=== PATIENT | female | born 1985 | race African-American/Black ===

== ENCOUNTER 2023-02-18 09:06 | Observation (INO) | payer OTHER, SELFPAY ==
[2023-02-18] VITALS (21 sets, daily range): BP systolic 144–166; BP diastolic 86–96; PULSE 56–84; RESP 16–18; TEMP 36.2–36.6; O2SAT 98–100; BMI 25.0
--- NOTE | ~2023-02-18 | XR_ITS ---
EXAMINATION: XR abdomen obstructive series DATE: 02/18/2023 21:59 INDICATION: Abdominal pain TECHNIQUE: Upright and supine views of the abdomen were obtained. COMPARISON: None. FINDINGS: The bowel gas pattern is nonspecific. No dilated loops of bowel are evident. There is no fr ee intraperitoneal gas. There are phleboliths of the left pelvis. The visualized lungs are clear. IMPRESSION: 1. Nonobstructive bowel gas pattern. Reviewed, dictated and finalized at location A.
--- NOTE | 2023-02-18 09:16 | PC.NURSE ---
EDP at bedside to assess pt.
[2023-02-18] MEDS: LACTATED RINGERS 1,000 ML 999 ML IV CONT ×2 (09:38→11:17)
[2023-02-18] MEDS: FAMOTIDINE 20 MG/2 ML VIAL IV PUSH ×2 (09:38→21:54)
[2023-02-18] MEDS: diphenhydrAMINE HCl INJ 50 MG/ML VIAL 25 MG IV PUSH (09:38)
[2023-02-18] MEDS: METOCLOPRAMIDE HCL INJ 10 MG/2 ML VIAL IV PUSH (09:39)
--- NOTE | 2023-02-18 09:54 | ED.NAVMDI ---
HPI - Nausea/Vomiting/Diarrhea General Chief complaint: Nausea/Vomiting/Diarrhea <DAVID Ortiz Last Filed: 02/18/23 15:18> Stated complaint: n/v <Eileen Key PA-C - Last Filed: 02/18/23 15:18> Time Seen by Provider: 02/18/23 09:13 <DAVID Ortiz Last Filed: 02/18/23 15:18> History of Present Illness HPI Narrative: 37-year-old female here for evaluation of nausea vomiting and diarrhea over the past 3 days. Patient states that she has been unable to tolerate any p.o. and has been vomiting yellow emesis after every trial. She reports that diffuse abdominal cramping but no significant pain. She was having some bilateral low back pain yesterday which has since resolved. No fevers, chills, chance of , bloody diarrhea, new or suspicious foods or sick contacts. She was seen at [place] emergency department yesterday, had a CT scan of her abdomen and pelvis that was reassuring and she was sent home after fluids. States that she did feel better initially but the vomiting returned about 12 hours ago. <DAVID Ortiz Last Filed: 02/18/23 15:18> Related Data Home medications: Home Medications Medication Instructions Recorded Confirmed buprenorphine 8 mg-naloxone 2 mg 1 tablet sublingual DAILY 02/18/23 02/18/23 sublingual tablet <DAVID Ortiz Last Filed: 02/18/23 15:18> Allergies/Adverse reactions: Allergies Allergy/AdvReac Type Severity Reaction Status Date / Time No Known Allergies Allergy Verified 02/18/23 09:12 <DAVID Ortiz Last Filed: 02/18/23 15:18> Review of Systems Review of Systems: Gen.: Denies fevers or chills Eyes: Denies eye pain or visual change ENT: Denies congestion Respiratory: Denies shortness of breath or cough CV: Denies chest pain or palpitations GI: Reports nausea, vomiting and diarrhea denies burning, urgency, frequency or hematuria Musculoskeletal: Denies back pain or muscle pain Neuro: Denies numbness, tingling, weakness or focal weakness Skin: Denies rash Except as documented, all other systems reviewed and negative <Eileen Key PA-C - Last Filed: 02/18/23 15:18> [facility] Past Medical History Medical History: Medical History (Updated 02/19/23 @ 09:24 by Eusebio Patterson MD) Diarrhea Hypokalemia Narcotic abuse Nausea & vomiting <Eileen Key PA-C - Last Filed: 02/18/23 15:18> Surgical History Surgical History: Surgical History (Updated 02/18/23 @ 21:29 by Nasra Mclean NP) H/O section <DAVID Ortiz Last Filed: 02/18/23 15:18> Family History Family History: Family History (Updated 02/18/23 @ 21:29 by Nasra Mclean NP) Father Hypertension Mother Hypertension Diabetes mellitus <Eileen Key PA-C - Last Filed: 02/18/23 15:18> Social History Social History: Social History (Updated 02/18/23 @ 21:30 by Nasra Mclean NP) Social History: The patient stated that she used to smoke cigarettes and she now vapes. 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 She denies any alcohol marijuana or illicit drugs. She has a past history of drug abuse and had been on Suboxone and stop taking it 3 weeks ago. Code status full code Smoking packs per day: 9 Smoking cigarettes per day: 180.0 Years smoked: 15 Smoking pack-years: 135.00 Smoking status: Former smoker Tobacco type: cigarettes Smoking end date: 02/04/23 Alcohol intake: never Lack of Transportation: YES Lack of Food: Never True Current Housing: I Have Housing Concerned About Future Housing: YES Difficulty Paying Gas/Electric Bills: YES Difficulty Paying for Meds: YES Currently Unemployed: YES Education: High School Diploma/GED Difficulty w/ Childcare or Family Care: No Spiritual care concerns: No <DAVID Ortiz Last Filed: 02/18/23 15:
[2023-02-18 10:33] LABS: Influenza A QL RT-PCR Negative (Negative); Influenza B QL RT-PCR Negative (Negative); SARS-CoV-2 RNA PCR Negative
[2023-02-18 10:37] LABS: Appearance Urine Cloudy (Clear); Bacteria Urine 1+ /hpf; Bilirubin Urine Negative (Negative); Blood Urine Negative (Negative); Color Urine Yellow (Yellow); Glucose Urine UA Negative (Negative); Ketones Urine Trace mg/dL (Negative); Leukocyte Esterase Ur Negative LEU/UL (Negative); Nitrate Urine Negative (Negative); Non Pathogenic Casts 0-2; Protein Urine 1+ mg/dL (Negative); RBC Urine 0-2 /hpf (0-2); Specific Grav Ur 1.015 (1.001-1.035); Squamous Epithelial Cell Urine Moderate /hpf (Few); Urobilinogen Urine 0.2 mg/dL (<2.0); WBC Urine 0-5 /hpf
[2023-02-18 10:44] LABS: Alanine Aminotransferase 21 U/L (6-35); Albumin Level 4.6 g/dL (3.5-5.1); Alkaline Phosphatase 69 U/L (38-126); Anion Gap 11 mmol/L (8-16); Aspartate Amino Transferase 29 U/L (14-36); Blood Urea Nitrogen 16 mg/dL (7-17); Calcium 9.4 mg/dL (8.4-10.2); Carbon Dioxide 22 mmol/L (22-30); Chloride 110 mmol/L (98-107); Estimated CRCL calculation 59 ml/min; Estimated Glomerular Filt Rate > 60; Glucose 107 mg/dL (65-110); Lipase 99 U/L (23-300); Potassium 3.4 mmol/L (3.4-5.0); Sodium 143 mmol/L (137-145)
[2023-02-18 10:51] LABS: Add Urine Microscopic? YES
[2023-02-18 10:54] LABS: Basophils Percent Auto 0.4 % (0.2-1.2); Eosinophils Percent Auto 0.1 % (0-4.4); Hematocrit 37.3 % (37.0-47.0); Hemoglobin 12.2 g/dL (12.0-15.0); Immature Granulocyte Absolute 0.05 K/mm3 (0.00-0.031); Immature Granulocyte Percent A 0.5 % (0-0.5); Lymphocytes Absolute Auto 1.14 K/mm3 (0.9-3.2); Lymphocytes Percent Auto 11.6 % (18.3-44.2); Mean Corpuscular HGB Conc 32.7 g/dl (32-36); Mean Corpuscular Hemoglobin 29.8 pg (26-34); Mean Platelet Volume 8.8 fl (7.4-10.4); Monocytes Absolute Auto 0.3 K/mm3 (0.1-0.6); Monocytes Percent Auto 2.8 % (2.6-8.5); Neutrophils Absolute Auto 8.3 K/mm3 (1.3-6.7); Neutrophils Percent Auto 84.6 % (45.5-73.1); Platelet Count Result 316 k/mm3 (150-375); Red Cell Distribution Width 13.4 % (11.5-14.5); White Blood Count 9.8 K/mm3 (4.5-10.0)
[2023-02-18] MEDS: ONDANSETRON INJ 4 MG/2 ML VIAL IV PUSH ×3 (11:17→22:20)
[2023-02-18 11:46] LABS: Bilirubin,Total 0.6 mg/dL (0.2-1.3)
[2023-02-18] MEDS: SCOPOLAMINE 1.5 MG PATCH TRANSDERM (13:37)
--- NOTE | 2023-02-18 13:56 | PC.NURSE ---
PO challenge not attempted as patient actively vomiting. EDP made aware.
[2023-02-18 14:20] LABS: Amphetamine Screen Urine Negative (Negative); Barbiturate Screen Urine Negative (Negative); Benzodiazepines Screen Urine Negative (Negative); Cannabinoid Screen Urine Negative (Negative); Cocaine Screen Urine Negative (Negative); Methadone Screen Urine Negative (Negative); Opiate Screen Urine Negative (Negative); Phencyclidine Screen Urine Negative (Negative)
--- NOTE | 2023-02-18 16:28 | PC.NURSE ---
2402 [facility] Admission Note: The patient,Isreal Ramirez,37 y/o, was given written information regarding hospital policies, unit procedures and contact persons. Patient recieved alert and oriented, on room air. Patient admission done.
[2023-02-18] MEDS: LACTATED RINGERS 1,000 ML 150 ML IV CONT (16:51)
--- NOTE | 2023-02-18 18:12 | PM.IMHP ---
H&P: HPI History of Present Illness Date/Time: 02/18/23 18:12 Chief Complaint: Nausea vomiting diarrhea Narrative: This is a 37-year-old female patient. The patient has been having nausea vomiting diarrhea for the past 3 days. The patient had been taking Suboxone in 3 weeks. The patient stated this does not feel like withdrawal symptoms. Patient was given IV fluids, Benadryl, Pepcid, scopolamine, and Zofran. The patient has not been able to tolerate any oral intake. The patient has been vomiting yellow emesis after p.o. trial. She has been complaining of bilateral lower pain since yesterday. No fever chills. The patient stated that she had a CT of the abdomen pelvis yesterday at [facility]. She was told that the CT scan was normal. The patient continue to vomit and then came here to [facility]. No repeat CT was performed I am asking for copies the CT scan from [facility]. The patient stil is her [id number] child and does not want any narcotics. The patient is being admitted to observation status on the date of service of 02/18/2023. Review of Systems Review of Systems: All systems reviewed & are unremarkable except as noted in HPI and below Constitutional: Constitutional: Reports as per HPI and Reports no additional constitutional complaints Eyes: Eyes: Reports as per HPI and Reports no additional eye complaints ENT: Reports system reviewed and no additional complaints, except as documented and Reports Normal hearing present Cardiovascular: Cardiovascular: Reports no additional cardiovascular complaints Respiratory: Respiratory: Reports no additional respiratory complaints and Reports no additional respiratory complaints Gastrointestinal: Gastrointestinal: Reports as per HPI and Reports no additional gastrointestinal complaints Musculoskeletal: Musculoskeletal: Reports no additional musculoskeletal complaints Integumentary/Breasts: Skin/Breast: Reports system reviewed and no additional complaints, except as docu and Reports as per HPI Neurologic: Reports system reviewed and no additional complaints, except as documented, Reports as per HPI and Reports Normal hearing present Psychiatric: Psychiatric: Reports no additional psychiatric complaints and Reports as per HPI Endocrine: Endocrine: Reports no additional endocrine complaints Hematologic/Lymphatic: Hematologic/Lymphatic: Reports no additional hematologic/lymphatic complaints Allergic/Immunologic: Allergic/Immunologic: Reports no additional allergic/immunologic complaints [facility] Past Medical History Medical History (Updated 02/18/23 @ 21:29 by Nasra Mclean NP) Narcotic abuse Surgical History Surgical History (Updated 02/18/23 @ 21:29 by Nasra Mclean NP) H/O section Family History Family History (Updated 02/18/23 @ 21:29 by Nasra Mclean NP) Father Hypertension Mother Hypertension Diabetes mellitus Social History Social History (Updated 02/18/23 @ 21:30 by Nasra Mclean NP) Social History: The patient stated that she used to smoke cigarettes and she now vapes. 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 She denies any alcohol marijuana or illicit drugs. She has a past history of drug abuse and had been on Suboxone and stop taking it 3 weeks ago. Code status full code Smoking packs per day: 9 Smoking cigarettes per day: 180.0 Years smoked: 15 Smoking pack-years: 135.00 Smoking status: Former smoker Tobacco type: cigarettes Smoking end date: 02/04/23 Alcohol intake: never Lack of Transportation: YES Lack of Food: Never True Current Housing: I Have Housing Concerned About Future Housing: YES Difficulty Paying Gas/Electric Bills: YES Difficulty Paying for Meds: YES Currently Unemployed: YES Education: High School Diploma/GED Difficulty w/ Childcare or Family Care: No Spiritual care concerns: No Meds Home Medications and Allergies Ho
[2023-02-18] MEDS: PROMETHAZINE HCL 25 MG/ML AMPUL 12.5 MG IV PUSH (20:23)
[2023-02-18] MEDS: LACTATED RINGERS 1,000 ML 100 ML IV CONT (20:23)
[2023-02-19] MEDS: ONDANSETRON INJ 4 MG/2 ML VIAL IV PUSH ×3 (05:00→20:26)
[2023-02-19] MEDS: diphenhydrAMINE HCl INJ 50 MG/ML VIAL 25 MG IV PUSH ×2 (05:02→20:25)
[2023-02-19 06:00] VITALS: BP 141/81; PULSE 55; RESP 16; TEMP 37; O2SAT 100
[2023-02-19 06:34] LABS: Basophils Percent Auto 0.2 % (0.2-1.2); Hematocrit 36.2 % (37.0-47.0); Immature Granulocyte Absolute 0.08 K/mm3 (0.00-0.031); Immature Granulocyte Percent A 0.7 % (0-0.5); Lymphocytes Absolute Auto 1.75 K/mm3 (0.9-3.2); Lymphocytes Percent Auto 14.8 % (18.3-44.2); Mean Corpuscular HGB Conc 33.1 g/dl (32-36); Mean Corpuscular Hemoglobin 29.9 pg (26-34); Mean Platelet Volume 8.7 fl (7.4-10.4); Monocytes Absolute Auto 0.8 K/mm3 (0.1-0.6); Monocytes Percent Auto 6.3 % (2.6-8.5); Neutrophils Absolute Auto 9.2 K/mm3 (1.3-6.7); Platelet Count Result 281 k/mm3 (150-375); Red Blood Count 4.02 M/mm3 (4.2-5.4); Red Cell Distribution Width 13.2 % (11.5-14.5); White Blood Count 11.8 K/mm3 (4.5-10.0)
[2023-02-19 06:48] LABS: Lactic Acid Reflex 1.1 mmol/L (0.7-2.0)
[2023-02-19 07:16] LABS: Alanine Aminotransferase 19 U/L (6-35); Albumin Level 4.1 g/dL (3.5-5.1); Alkaline Phosphatase 61 U/L (38-126); Anion Gap 9 mmol/L (8-16); Aspartate Amino Transferase 22 U/L (14-36); Bilirubin,Total 0.6 mg/dL (0.2-1.3); Blood Urea Nitrogen 17 mg/dL (7-17); Calcium 8.8 mg/dL (8.4-10.2); Carbon Dioxide 23 mmol/L (22-30); Chloride 108 mmol/L (98-107); Estimated CRCL calculation 66 ml/min; Estimated Glomerular Filt Rate > 60; Glucose 93 mg/dL (65-110); Lipase 120 U/L (23-300); Magnesium 1.7 mg/dL (1.6-2.3); Potassium 3.3 mmol/L (3.4-5.0); Sodium 140 mmol/L (137-145)
[2023-02-19] MEDS: FAMOTIDINE 20 MG/2 ML VIAL IV PUSH ×2 (07:49→20:21)
[2023-02-19] MEDS: LACTATED RINGERS 1,000 ML 100 ML IV CONT ×2 (07:55→20:20)
[2023-02-19] MEDS: PROMETHAZINE HCL 25 MG/ML AMPUL 12.5 MG IV PUSH (07:56)
--- NOTE | 2023-02-19 09:20 | WPDGICN ---
Assessment and Plan Assessment and plan (1) Nausea & vomiting: Code(s): R11.2 - Nausea with vomiting, unspecified Status: Acute Assessment and Plan: better with antiemetics continue with medical treatment liquid diet for now and advance as tolerated ? gastroenteritis as she also had diarrhea but better (2) Diarrhea: Code(s): R19.7 - Diarrhea, unspecified Status: Acute Assessment and Plan: monitor (3) Narcotic abuse: Code(s): F11.10 - Opioid abuse, uncomplicated Status: Acute Assessment and Plan: not longer using suboxone ? withdrawal (4) Hypokalemia: Code(s): E87.6 - Hypokalemia Status: Acute Assessment and Plan: repleting GI Consult Note Consult date/time: 02/19/23 09:20 Reason for consult: n/v, diarrhea HPI: Isreal Ramirez is a 37 year old female admitted after 3 days of new onset of nausea, vomiting and diarrhea. She used to be on Suboxone but discontinue 3 weeks, she is also her baby that is 15 months old.? She went to another ER, CT scan was unremarkable but came here because persistent of symptoms, treated with IV fluids, Benadryl, Pepcid, scopolamine, and Zofran.?Still not tolerating diet and finally admitted for further treatment. Normal renal function, mild hypokalemia. KUB no major findings, never had egd. Denies alcohol or marijuana use, no sick contacts. She is better with antiemetics. Review of Systems Review of Systems: Gen.: Denies fevers or chills Eyes: Denies eye pain or visual change ENT: Denies congestion Respiratory: Denies shortness of breath or cough CV: Denies chest pain or palpitations GI: Reports nausea, vomiting and diarrhea denies burning, urgency, frequency or hematuria Musculoskeletal: Denies back pain or muscle pain Neuro: Denies numbness, tingling, weakness or focal weakness Skin: Denies rash Except as documented, all other systems reviewed and negative [facility] Past Medical History Medical History (Updated 02/19/23 @ 09:24 by Eusebio Patterson MD) Diarrhea Hypokalemia Narcotic abuse Nausea & vomiting Surgical History Surgical History (Updated 02/18/23 @ 21:29 by Nasra Mclean NP) H/O section Family History Family History (Updated 02/18/23 @ 21:29 by Nasra Mclean NP) Father Hypertension Mother Hypertension Diabetes mellitus Social History Social History (Updated 02/18/23 @ 21:30 by Nasra Mclean NP) Social History: The patient stated that she used to smoke cigarettes and she now vapes. 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 She denies any alcohol marijuana or illicit drugs. She has a past history of drug abuse and had been on Suboxone and stop taking it 3 weeks ago. Code status full code Smoking packs per day: 9 Smoking cigarettes per day: 180.0 Years smoked: 15 Smoking pack-years: 135.00 Smoking status: Former smoker Tobacco type: cigarettes Smoking end date: 02/04/23 Alcohol intake: never Lack of Transportation: YES Lack of Food: Never True Current Housing: I Have Housing Concerned About Future Housing: YES Difficulty Paying Gas/Electric Bills: YES Difficulty Paying for Meds: YES Currently Unemployed: YES Education: High School Diploma/GED Difficulty w/ Childcare or Family Care: No Spiritual care concerns: No Meds Home Medications and Allergies Home Medications Medication Instructions Recorded Confirmed Type buprenorphine 8 mg-naloxone 2 mg 1 tablet sublingual DAILY 02/18/23 02/18/23 History sublingual tablet Allergies Allergy/AdvReac Type Severity Reaction Status Date / Time No Known Allergies Allergy Verified 02/18/23 09:12 Vital Signs Vital Signs - 24 hr 02/18/23 09:47 02/18/23 10:01 02/18/23 10:24 Temperature Pulse Rate Respiratory Rate Blood Pressure 166/96 H Pulse Oximetry 100 100 Oxygen Delivery 02/18/23 10:32 02/18/23
--- NOTE | 2023-02-19 10:01 | PM.IMPN ---
Progress Note: A&P Assessment and Plan (1) Intractable nausea and vomiting: Code(s): R11.2 - Nausea with vomiting, unspecified Status: Acute Assessment and Plan: Tylenol and Toradol for pain control, avoid narcotics, recently discontinued Suboxone Appreciate GI consultation, continue Pepcid and antiemetics Clear liquid diet, advance as tolerated, continue IV fluids for now (2) Narcotic abuse: Code(s): F11.10 - Opioid abuse, uncomplicated Status: Acute Assessment and Plan: The patient stated that she stopped Suboxone 3 weeks ago. Plan DVT prophylaxis with SCDs GI prophylaxis with Pepcid Code status full code Subjective Date/time seen: 02/19/23 10:01 Interval history: 37-year-old female with history of nausea vomiting and diarrhea here with suspected gastroenteritis. No overnight events noted. No chest pain or shortness of breath. Still with nausea, some abdominal pain. No diarrhea anymore. No dysuria. No fevers or chills. Review of Systems Review of Systems: 12 point review of systems was assessed and was negative except as noted in the HPI Exam Narrative: General: No acute distress, alert and oriented per baseline HEENT: Atraumatic, normocephalic, mucous membranes moist CV: Regular rate and rhythm, S1, S2 Lungs: Clear to auscultation bilaterally, no rales or crackles noted, no wheezes, good air entry Abdomen: Soft, nontender, nondistended Extremities: Normal to inspection Skin: No rashes noted, no lesions or wounds seen Psych: Euthymic, normal affect Objective Data Vital Signs Vital Signs: Vital Signs - 24 hr 02/18/23 10:24 02/18/23 10:32 02/18/23 10:47 Temperature Pulse Rate Respiratory Rate Blood Pressure Pulse Oximetry 100 100 100 Oxygen Delivery 02/18/23 11:00 02/18/23 11:15 02/18/23 11:49 Temperature Pulse Rate Respiratory Rate Blood Pressure Pulse Oximetry 100 100 100 Oxygen Delivery 02/18/23 12:00 02/18/23 12:01 02/18/23 12:15 Temperature Pulse Rate Respiratory Rate Blood Pressure 144/92 H 161/90 H Pulse Oximetry 100 100 100 Oxygen Delivery 02/18/23 12:16 02/18/23 12:30 02/18/23 12:31 Temperature Pulse Rate Respiratory Rate Blood Pressure 166/86 H Pulse Oximetry 100 100 100 Oxygen Delivery 02/18/23 12:32 02/18/23 15:21 02/18/23 15:22 Temperature Pulse Rate 56 L Respiratory Rate 16 Blood Pressure 151/86 H Pulse Oximetry 100 100 100 Oxygen Delivery 02/18/23 17:29 02/18/23 21:49 02/19/23 06:00 Temperature 97.1 F L 98.6 F Pulse Rate 58 L 55 L Respiratory Rate 18 16 Blood Pressure 166/91 H 141/81 H Pulse Oximetry 100 100 Oxygen Delivery Room Air 02/19/23 08:00 Temperature Pulse Rate Respiratory Rate Blood Pressure Pulse Oximetry Oxygen Delivery Room Air Intake/Output Intake/Output: Intake & Output 02/16/23 02/17/23 02/18/23 02/19/23 23:59 23:59 23:59 23:59 Intake Total 2100 1000 Output Total 200 400 Balance 1900 600 Meds/Results Medications: Active Medications Generic Name Dose Route Start Last Admin Trade Name Freq PRN Reason Stop Dose Admin Dicyclomine HCl 20 mg 02/18/23 14:57 Dicyclomine Hcl Inj 20 Mg/2 Ml Vial IM Q6H PRN Abdominal Cramping Diphenhydramine HCl 25 mg 02/18/23 17:46 02/19/23 05:02 Diphenhydramine Hcl Inj 50 Mg/Ml Vial IV PUSH 25 mg Q4H PRN Administration Itching Famotidine 20 mg 02/18/23 21:00 02/19/23 07:49 Famotidine 20 Mg/2 Ml Vial IV PUSH 20 mg Q12HR KELVIN Administration Lactated Ringer's 1,000 mls @ 100 mls/hr 02/18/23 18:15 02/19/23 07:55 Lr - Lactated Ringers Iv IV CONT 100 mls/hr .Q10H KELVIN Administration Acetaminophen 1,000 mg in 100 mls @ 400 mls/hr 02/18/23 21:33 02/18/23 22:17 Ofirmev 1,000 Mg Ivpb IVPB 02/19/23 21:32 Infused Q6H PRN Infusion Pain Rated 4-6 Ondansetron HCl
[2023-02-19 13:51] VITALS: BP 154/87; PULSE 53; RESP 16; TEMP 36.6; O2SAT 100
[2023-02-19] MEDS: KETOROLAC 15 MG/ML VIAL (*BKC) IV PUSH (17:41)
[2023-02-19 21:26] VITALS: BP 172/95; PULSE 99; RESP 14; TEMP 36.3; O2SAT 100
[2023-02-19 22:27] LABS: Total Triiodothyronine (T3) 0.63 NG/ML (0.97-1.69)
[2023-02-20] MEDS: diphenhydrAMINE HCl INJ 50 MG/ML VIAL 25 MG IV PUSH (00:48)
[2023-02-20] MEDS: ONDANSETRON INJ 4 MG/2 ML VIAL IV PUSH ×3 (03:22→18:24)
[2023-02-20] MEDS: ACETAMINOPHEN 325 MG TABLET 650 MG PO ×3 (03:25→13:50)
[2023-02-20 05:59] VITALS: BP 159/98; PULSE 60; RESP 16; TEMP 36.4; O2SAT 100
[2023-02-20 06:28] LABS: Basophils Percent Auto 0.3 % (0.2-1.2); Hematocrit 34.4 % (37.0-47.0); Hemoglobin 11.7 g/dL (12.0-15.0); Immature Granulocyte Absolute 0.13 K/mm3 (0.00-0.031); Lymphocytes Absolute Auto 2.24 K/mm3 (0.9-3.2); Lymphocytes Percent Auto 17.4 % (18.3-44.2); Mean Corpuscular Hemoglobin 29.5 pg (26-34); Mean Corpuscular Volume 86.6 fl (80-100); Mean Platelet Volume 8.6 fl (7.4-10.4); Monocytes Absolute Auto 0.9 K/mm3 (0.1-0.6); Monocytes Percent Auto 6.6 % (2.6-8.5); Neutrophils Absolute Auto 9.7 K/mm3 (1.3-6.7); Neutrophils Percent Auto 74.7 % (45.5-73.1); Platelet Count Result 268 k/mm3 (150-375); Red Blood Count 3.97 M/mm3 (4.2-5.4); Red Cell Distribution Width 12.7 % (11.5-14.5); White Blood Count 12.9 K/mm3 (4.5-10.0)
[2023-02-20 06:37] LABS: Alanine Aminotransferase 20 U/L (6-35); Albumin Level 3.7 g/dL (3.5-5.1); Alkaline Phosphatase 56 U/L (38-126); Anion Gap 3 mmol/L (8-16); Aspartate Amino Transferase 24 U/L (14-36); Bilirubin,Total 0.7 mg/dL (0.2-1.3); Blood Urea Nitrogen 20 mg/dL (7-17); Calcium 8.3 mg/dL (8.4-10.2); Carbon Dioxide 28 mmol/L (22-30); Chloride 106 mmol/L (98-107); Estimated CRCL calculation 66 ml/min; Estimated Glomerular Filt Rate > 60; Glucose 100 mg/dL (65-110); Potassium 3.3 mmol/L (3.4-5.0); Sodium 137 mmol/L (137-145)
[2023-02-20] MEDS: LACTATED RINGERS 1,000 ML 100 ML IV CONT ×2 (07:26→14:03)
[2023-02-20] MEDS: FAMOTIDINE 20 MG/2 ML VIAL IV PUSH ×2 (07:29→20:38)
[2023-02-20 10:20] LABS: IFOB Positive Control Positive; Immunochemical Fecal Occult Bl Negative (N)
[2023-02-20 12:09] LABS: Toxigenic C. Diff POSITIVE (NEGATIVE)
[2023-02-20] MEDS: PROMETHAZINE HCL 25 MG/ML AMPUL 12.5 MG IV PUSH ×2 (13:49→20:38)
--- NOTE | 2023-02-20 13:52 | WPDGIPROGNO ---
Progress Note: A&P Assessment and Plan (1) C. difficile colitis: Code(s): A04.72 - Enterocolitis due to Clostridium difficile, not specified as recurrent Status: Acute Assessment and Plan: this can explain presentation started on oral vancomycin she does not have much appetite and still on liquid diet, feeling better since admission (2) Nausea & vomiting: Code(s): R11.2 - Nausea with vomiting, unspecified Status: Acute Assessment and Plan: no more vomiting still some nausea she prefers to stay on liquid diet today (3) Diarrhea: Code(s): R19.7 - Diarrhea, unspecified Status: Acute (4) Abdominal pain: Code(s): R10.9 - Unspecified abdominal pain Status: Acute Subjective Date/time seen: 02/20/23 13:52 Interval history: nausea better but still poor appetite, also diarrhea- just found to have C diff (denies exposure to abx or previous infection) Review of Systems Review of Systems: All systems reviewed & are unremarkable except as noted in HPI and below Exam Const: General: comfortable and no acute distress Other: feels cold HENMT: Face/Nose/Sinus: Normal nares present Eyes: General: appearance normal, both eyes and all related structures Neck: Neck: no JVD Resp: Auscultation: clear to auscultation bilaterally Cardio: Rate: regular rate Rhythm: regular rhythm GI: Inspection: non-distended GI Palp: Yes Soft to palpation, Yes Tenderness to palpation present (GI) (mild ttp, no rebound) and No Guarding due to palpation present (GI) Auscultation: normal bowel sounds Skin: General skin exam: normal color Neuro: Speech: normal speech Motor exam (neuro): 5/5 motor strength present throughout Extrem: General: normal to inspection Psych: Mental Status: mental status grossly normal Objective Data Vital Signs Vital Signs: Vital Signs - 24 hr 02/19/23 21:26 02/20/23 05:59 02/20/23 08:00 Temperature 97.4 F L 97.6 F Pulse Rate 99 60 Respiratory Rate 14 16 Blood Pressure 172/95 H 159/98 H Pulse Oximetry 100 100 Oxygen Delivery Room Air Intake/Output Intake/Output: Intake & Output 02/17/23 02/18/23 02/19/23 02/20/23 23:59 23:59 23:59 23:59 Intake Total 2100 2300 1440 Output Total 200 800 850 Balance 1900 1500 590 Meds/Results Medications: Active Medications Generic Name Dose Route Start Last Admin Trade Name Bhaveshq PRN Reason Stop Dose Admin Acetaminophen 650 mg 02/19/23 21:30 02/20/23 07:33 Acetaminophen 325 Mg Tablet PO 650 mg Q4H PRN Administration Mild Pain (1-3) or Fever Dicyclomine HCl 20 mg 02/18/23 14:57 Dicyclomine Hcl Inj 20 Mg/2 Ml Vial IM Q6H PRN Abdominal Cramping Diphenhydramine HCl 25 mg 02/18/23 17:46 02/20/23 00:48 Diphenhydramine Hcl Inj 50 Mg/Ml Vial IV PUSH 25 mg Q4H PRN Administration Itching Famotidine 20 mg 02/18/23 21:00 02/20/23 07:29 Famotidine 20 Mg/2 Ml Vial IV PUSH 20 mg Q12HR KELVIN Administration Lactated Ringer's 1,000 mls @ 100 mls/hr 02/18/23 18:15 02/20/23 07:26 Lr - Lactated Ringers Iv IV CONT 100 mls/hr .Q10H KELVIN Administration Ketorolac Tromethamine 15 mg 02/19/23 17:27 02/19/23 17:41 Ketorolac 15 Mg/Ml Vial (*Bkc) IV PUSH 15 mg Q6H PRN Administration Pain Rated 7-10 Ondansetron HCl 4 mg 02/18/23 14:57 02/20/23 07:26 Ondansetron Inj 4 Mg/2 Ml Vial IV PUSH 4 mg Q4H PRN Administration Nausea Promethazine HCl 12.5 mg 02/18/23 14:57 02/19/23 07:56 Promethazine Hcl 25 Mg/Ml Ampul IV PUSH 12.5 mg Q6H PRN Administration Nausea Vancomycin HCl 125 mg 02/20/23 18:00 Vancomycin Oral 125 Mg/2.5 Ml Syrup PO Q6HR [facility] Radiology Results: ITS Impressions Abdomen X-Ray 02/19/23 08:17 IMPRESSION: 1. Nonobstructive bowel gas pattern. Labs Labs: Laboratory Results - last 24 hr 02/19/23 02/20/23 02/20/23 05:54 06:06 06:06 WBC 12.
[2023-02-20] MEDS: KETOROLAC 15 MG/ML VIAL (*BKC) IV PUSH (13:59)
[2023-02-20 14:00] VITALS: BP 184/98; PULSE 56; RESP 16; TEMP 36; O2SAT 100
--- NOTE | 2023-02-20 14:03 | PM.IMPN ---
Progress Note: A&P Assessment and Plan (1) Intractable nausea and vomiting: Code(s): R11.2 - Nausea with vomiting, unspecified Status: Acute Assessment and Plan: Tylenol and Toradol for pain control, avoid narcotics, recently discontinued Suboxone Appreciate GI consultation, continue Pepcid and antiemetics clear liquid diet and advance as tolerated stop fluids (2) Narcotic abuse: Code(s): F11.10 - Opioid abuse, uncomplicated Status: Acute Assessment and Plan: The patient stated that she stopped Suboxone 3 weeks ago. Subjective Date/time seen: 02/20/23 14:04 Interval history: 37-year-old female with history of nausea vomiting and diarrhea here with suspected gastroenteritis. History of narcotic abuse has been off narcotics and on suboxone. Pt just found to have cdiff colitis Pt having alot of nausea and diarrhea today Blood pressures are high stop fluids just continue diet Review of Systems Review of Systems: Nausea and diarrhea Exam Narrative: General: No acute distress, alert and oriented per baseline HEENT: Atraumatic, normocephalic, mucous membranes moist CV: Regular rate and rhythm, S1, S2 Lungs: Clear to auscultation bilaterally, no rales or crackles noted, no wheezes, good air entry Abdomen: Soft, nontender, nondistended Extremities: Normal to inspection Skin: No rashes noted, no lesions or wounds seen Objective Data Vital Signs Vital Signs: Vital Signs - 24 hr 02/19/23 21:26 02/20/23 05:59 02/20/23 08:00 Temperature 36.3 C L 36.4 C Pulse Rate 99 60 Respiratory Rate 14 16 Blood Pressure 172/95 H 159/98 H Pulse Oximetry 100 100 Oxygen Delivery Room Air Intake/Output Intake/Output: Intake & Output 02/17/23 02/18/23 02/19/23 02/20/23 23:59 23:59 23:59 23:59 Intake Total 2100 2300 1440 Output Total 200 800 850 Balance 1900 1500 590 Meds/Results Medications: Active Medications Generic Name Dose Route Start Last Admin Trade Name Freq PRN Reason Stop Dose Admin Acetaminophen 650 mg 02/19/23 21:30 02/20/23 13:50 Acetaminophen 325 Mg Tablet PO 650 mg Q4H PRN Administration Mild Pain (1-3) or Fever Dicyclomine HCl 20 mg 02/18/23 14:57 Dicyclomine Hcl Inj 20 Mg/2 Ml Vial IM Q6H PRN Abdominal Cramping Diphenhydramine HCl 25 mg 02/18/23 17:46 02/20/23 00:48 Diphenhydramine Hcl Inj 50 Mg/Ml Vial IV PUSH 25 mg Q4H PRN Administration Itching Famotidine 20 mg 02/18/23 21:00 02/20/23 07:29 Famotidine 20 Mg/2 Ml Vial IV PUSH 20 mg Q12HR KELVIN Administration Lactated Ringer's 1,000 mls @ 100 mls/hr 02/18/23 18:15 02/20/23 07:26 Lr - Lactated Ringers Iv IV CONT 100 mls/hr .Q10H KELVIN Administration Ketorolac Tromethamine 15 mg 02/19/23 17:27 02/20/23 13:59 Ketorolac 15 Mg/Ml Vial (*Bkc) IV PUSH 15 mg Q6H PRN Administration Pain Rated 7-10 Ondansetron HCl 4 mg 02/18/23 14:57 02/20/23 07:26 Ondansetron Inj 4 Mg/2 Ml Vial IV PUSH 4 mg Q4H PRN Administration Nausea Promethazine HCl 12.5 mg 02/18/23 14:57 02/20/23 13:49 Promethazine Hcl 25 Mg/Ml Ampul IV PUSH 12.5 mg Q6H PRN Administration Nausea Vancomycin HCl 125 mg 02/20/23 18:00 Vancomycin Oral 125 Mg/2.5 Ml Syrup PO Q6HR [facility] Radiology Results: ITS Impressions Abdomen X-Ray 02/19/23 08:17 IMPRESSION: 1. Nonobstructive bowel gas pattern. Labs Labs: Laboratory Results - last 24 hr 02/19/23 02/20/23 02/20/23 05:54 06:06 06:06 WBC 12.9 H RBC 3.97 L Hgb 11.7 L Hct 34.4 L MCV 86.6 MCH 29.5 MCHC 34.0 RDW 12.7 Plt Count 268 MPV 8.6 Immature Gran % (Auto) 1.0 H Neut % (Auto) 74.7 H Lymph % (Auto) 17.4 L [place] % (Auto) 6.6 Eos % (Auto) 0.0 Baso % (Auto) 0.3 Lymph # (Auto) 2.24 [place] # (Auto) 0.9 H Eos # (Auto) 0.0 Baso # (Auto) 0.0 Abs Immat Gran (au
--- NOTE | 2023-02-20 14:53 | PC.NURSE ---
BP at 1400 184/98, provider Dr. Selby made aware. Order received, DC'd Fluids. Patient has no c/o CP or palpitations, patient does complain of a headache 3/10 Tylenol given and continue to monitor response to BP after DC Fluids. Candy Reid RN
[2023-02-20 16:23] VITALS: BP 164/89; BP 184/104; PULSE 60; PULSE 62; RESP 16; TEMP 35.9; O2SAT 100
[2023-02-20] MEDS: VANCOMYCIN ORAL 125 MG/2.5 ML SYRUP PO ×2 (18:24→23:54)
[2023-02-20 22:00] VITALS: BP 177/105; PULSE 66; RESP 13; TEMP 36.8; O2SAT 100
[2023-02-21] MEDS: ONDANSETRON INJ 4 MG/2 ML VIAL IV PUSH ×2 (00:03→06:01)
[2023-02-21 06:00] VITALS: BP 141/96; PULSE 70; RESP 15; TEMP 37.1; O2SAT 100
[2023-02-21 06:00] LABS: Basophils Percent Auto 0.3 % (0.2-1.2); Eosinophils Percent Auto 0.3 % (0-4.4); Hematocrit 39.6 % (37.0-47.0); Hemoglobin 13.6 g/dL (12.0-15.0); Immature Granulocyte Absolute 0.08 K/mm3 (0.00-0.031); Immature Granulocyte Percent A 0.7 % (0-0.5); Lymphocytes Absolute Auto 2.05 K/mm3 (0.9-3.2); Lymphocytes Percent Auto 17.2 % (18.3-44.2); Mean Corpuscular HGB Conc 34.3 g/dl (32-36); Mean Corpuscular Hemoglobin 29.1 pg (26-34); Mean Corpuscular Volume 84.8 fl (80-100); Mean Platelet Volume 8.4 fl (7.4-10.4); Monocytes Absolute Auto 0.8 K/mm3 (0.1-0.6); Monocytes Percent Auto 6.4 % (2.6-8.5); Neutrophils Percent Auto 75.1 % (45.5-73.1); Platelet Count Result 299 k/mm3 (150-375); Red Blood Count 4.67 M/mm3 (4.2-5.4); Red Cell Distribution Width 12.5 % (11.5-14.5); White Blood Count 11.9 K/mm3 (4.5-10.0)
[2023-02-21] MEDS: VANCOMYCIN ORAL 125 MG/2.5 ML SYRUP PO ×2 (06:00→11:20)
[2023-02-21 06:14] LABS: Alanine Aminotransferase 19 U/L (6-35); Albumin Level 3.6 g/dL (3.5-5.1); Alkaline Phosphatase 56 U/L (38-126); Anion Gap 4 mmol/L (8-16); Aspartate Amino Transferase 21 U/L (14-36); Bilirubin,Total 0.6 mg/dL (0.2-1.3); Blood Urea Nitrogen 17 mg/dL (7-17); Calcium 8.3 mg/dL (8.4-10.2); Carbon Dioxide 28 mmol/L (22-30); Chloride 104 mmol/L (98-107); Estimated CRCL calculation 74 ml/min; Estimated Glomerular Filt Rate > 60; Glucose 102 mg/dL (65-110); Sodium 136 mmol/L (137-145)
[2023-02-21 07:55] VITALS: O2SAT 100
[2023-02-21] MEDS: FAMOTIDINE 20 MG/2 ML VIAL IV PUSH (08:47)
[2023-02-21] MEDS: diphenhydrAMINE HCl INJ 50 MG/ML VIAL 25 MG IV PUSH (09:29)
--- NOTE | 2023-02-21 10:29 | WPDGIPROGNO ---
Progress Note: A&P Assessment and Plan (1) C. difficile colitis: Code(s): A04.72 - Enterocolitis due to Clostridium difficile, not specified as recurrent Status: Acute Assessment and Plan: better with oral vancomycin better since admission probably home today and can complete treatment at home (2) Nausea & vomiting: Code(s): R11.2 - Nausea with vomiting, unspecified Status: Acute Assessment and Plan: no more vomiting still some nausea but improved continue with antiemetics prn will advance diet (3) Diarrhea: Code(s): R19.7 - Diarrhea, unspecified Status: Acute (4) Abdominal pain: Code(s): R10.9 - Unspecified abdominal pain Status: Acute Subjective Date/time seen: 02/21/23 10:29 Interval history: still with diarrhea but overall better, no vomiting for 2 days, still morning sickness but tolerating diet Review of Systems Review of Systems: All systems reviewed & are unremarkable except as noted in HPI and below Exam Const: General: comfortable and no acute distress HENMT: Face/Nose/Sinus: Normal nares present Eyes: General: appearance normal, both eyes and all related structures Neck: Neck: no JVD Resp: Auscultation: clear to auscultation bilaterally Cardio: Rate: regular rate Rhythm: regular rhythm GI: Inspection: non-distended GI Palp: Yes Soft to palpation, No Tenderness to palpation present (GI) and No Guarding due to palpation present (GI) Auscultation: normal bowel sounds Skin: General skin exam: normal color Neuro: Speech: normal speech Motor exam (neuro): 5/5 motor strength present throughout Extrem: General: normal to inspection Psych: Mental Status: mental status grossly normal Objective Data Vital Signs Vital Signs: Vital Signs - 24 hr 02/20/23 14:00 02/20/23 16:23 02/20/23 16:23 Temperature 96.8 F L 96.7 F L 96.7 F L Pulse Rate 56 L 62 60 Respiratory Rate 16 16 16 Blood Pressure 184/98 H 184/104 H 164/89 H Pulse Oximetry 100 100 100 Oxygen Delivery 02/20/23 22:00 02/21/23 06:00 02/21/23 07:55 Temperature 98.3 F 98.8 F Pulse Rate 66 70 Respiratory Rate 13 15 Blood Pressure 177/105 H 141/96 H Pulse Oximetry 100 100 100 Oxygen Delivery Room Air Intake/Output Intake/Output: Intake & Output 02/18/23 02/19/23 02/20/23 02/21/23 23:59 23:59 23:59 23:59 Intake Total 2100 2300 2858 Output Total 428 470 4315 750 Balance 1900 1500 1108 -750 Meds/Results Medications: Active Medications Generic Name Dose Route Start Last Admin Trade Name Freq PRN Reason Stop Dose Admin Acetaminophen 650 mg 02/19/23 21:30 02/20/23 13:50 Acetaminophen 325 Mg Tablet PO 650 mg Q4H PRN Administration Mild Pain (1-3) or Fever Dicyclomine HCl 20 mg 02/18/23 14:57 Dicyclomine Hcl Inj 20 Mg/2 Ml Vial IM Q6H PRN Abdominal Cramping Diphenhydramine HCl 25 mg 02/18/23 17:46 02/21/23 09:29 Diphenhydramine Hcl Inj 50 Mg/Ml Vial IV PUSH 25 mg Q4H PRN Administration Itching Famotidine 20 mg 02/18/23 21:00 02/21/23 08:47 Famotidine 20 Mg/2 Ml Vial IV PUSH 20 mg Q12HR KELVIN Administration Ketorolac Tromethamine 15 mg 02/19/23 17:27 02/20/23 13:59 Ketorolac 15 Mg/Ml Vial (*Bkc) IV PUSH 15 mg Q6H PRN Administration Pain Rated 7-10 Lorazepam 0.5 mg 02/20/23 14:10 Lorazepam (*Crx) 0.5 Mg Tablet PO Q6H PRN Anxiety Ondansetron HCl 4 mg 02/18/23 14:57 02/21/23 06:01 Ondansetron Inj 4 Mg/2 Ml Vial IV PUSH 4 mg Q4H PRN Administration Nausea Promethazine HCl 12.5 mg 02/18/23 14:57 02/20/23 20:38 Promethazine Hcl 25 Mg/Ml Ampul IV PUSH 12.5 mg Q6H PRN Administration Nausea Vancomycin HCl 125 mg 02/20/23 18:00 02/21/23 06:00 Vancomycin Oral 125 Mg/2.5 Ml Syrup PO 125 mg Q6HR KELVIN Administration Radiology Results: ITS Impressions Abdomen X-Ray 02/19/23 08:17 IMPRESSION: 1. Nonobstr
--- NOTE | 2023-02-21 13:26 | PM.DS ---
DS: Admitting Diagnosis Discharge Date 02/21/2023 Admitting Diagnosis Nausea vomiting diarrhea DS: Discharge Diagnosis Discharge Diagnosis Plan (1) Intractable nausea and vomiting: ?Code(s): R11.2 - Nausea with vomiting, unspecified ?Status:?Acute ?Assessment and Plan: Tylenol and Toradol for pain control, avoid narcotics, recently discontinued Suboxone Appreciate GI consultation, continue Pepcid and antiemetics clear liquid diet and advance as tolerated stop fluids (2) Narcotic abuse: ?Code(s): F11.10 - Opioid abuse, uncomplicated ?Status:?Acute ?Assessment and Plan: The patient stated that she stopped Suboxone 3 weeks ago. 3) Cdiff Pt found to have cdiff oral vancomycin started for patient. DS: Summary Hospital Course Hospital Course: 37-year-old female patient.? The patient has been having nausea vomiting diarrhea for the past 3 days.? The patient had been taking Suboxone in 3 weeks.? The patient stated this does not feel like withdrawal symptoms.? Patient was given IV fluids, Benadryl, Pepcid, scopolamine, and Zofran.? The patient has not been able to tolerate any oral intake.? The patient has been vomiting yellow emesis after p.o. trial.? She has been complaining of bilateral lower pain since yesterday.? No fever chills.? The patient stated that she had a CT of the abdomen pelvis yesterday at [facility], [place].? She was told that the CT scan was normal.? The patient continue to vomit and then came here to [facility].? No repeat CT was performed I am asking for copies the CT scan from [facility], [place].? The patient? stil is her [id number] child and does not want any narcotics.? Pt found to have cdiff started on oral vancomycin diarrhea improved pt was tolerating a diet ok to DC Pt has baby at home ok to breast fed while on oral vancomycin. Hand washing emphasized when handling baby. Time Spent with Patient Time attestation: Total time spent providing and/or coordinating discharge services:40 minutes on day of DC Exam Narrative: General:? No acute distress, alert and oriented per baseline HEENT:? Atraumatic, normocephalic, mucous membranes moist CV:? Regular rate and rhythm, S1, S2 Lungs:? Clear to auscultation bilaterally, no rales or crackles noted, no wheezes, good air entry Abdomen:? Soft, nontender, nondistended Extremities:? Normal to inspection Skin:? No rashes noted, no lesions or wounds seen ? DS: Data Data Completed and Pending Labs on day of discharge: Labs from last 24 hours 02/21/23 02/21/23 05:49 05:49 WBC 11.9 H RBC 4.67 Hgb 13.6 Hct 39.6 MCV 84.8 MCH 29.1 MCHC 34.3 RDW 12.5 Plt Count 299 MPV 8.4 Immature Gran % (Auto) 0.7 H Neut % (Auto) 75.1 H Lymph % (Auto) 17.2 L Bracken % (Auto) 6.4 Eos % (Auto) 0.3 Baso % (Auto) 0.3 Lymph # (Auto) 2.05 Bracken # (Auto) 0.8 H Eos # (Auto) 0.0 Baso # (Auto) 0.0 Abs Immat Gran (auto) 0.08 H Absolute Neuts (auto) 9.0 H Absolute Nucleated RBC 0.0 Nucleated RBC % 0.0 Sodium 136 L Potassium 3.0 L Chloride 104 Carbon Dioxide 28 Anion Gap 4 L BUN 17 Creatinine 0.80 Estim Creat Clear Calc 74 Estimated GFR > 60 Glucose 102 Calcium 8.3 L Total Bilirubin 0.6 AST 21 ALT 19 Alkaline Phosphatase 56 Total Protein 6.0 L Albumin 3.6 Discharge Plan Discharge Attending physician on discharge: Binta Selby Consulting providers: Eusebio Patterson ; Eileen Key Discharging Clinician: Binta Selby Anticipated Discharge Date/Time: 02/21/23 13:19 Patient Disposition: Home, Self-Care Activity: as tolerated Diet: as tolerated Discharge Instructions: Pt can breastfeed while on oral vancomycin Only bleach will kill c. diff, please clean house and hard surfaces with bleach to keep from spreading infection, keep baby away from bathrooms and other places of possible soiled co
== END 2023-02-21 14:55 | disposition home or self-care (01) ==
LOC: ANHED 14:59 → ANH3MEDSUR 16:44
PROVIDERS: Emergency Medicine; Nurse Practitioner; Student in an Organized Health Care Education/Training Program; Admitting Provider Family Medicine; Emergency Provider Physician Assistant; Visit Provider Family Medicine
DX: A04.72 Enterocolitis due to Clostridium difficile, not specified as recurrent (principal); F11.10 Opioid abuse, uncomplicated; E87.6 Hypokalemia; M54.50 Low back pain, unspecified; Z20.822 Contact with and (suspected) exposure to COVID-19; F19.10 Other psychoactive substance abuse, uncomplicated; F17.290 Nicotine dependence, other tobacco product, uncomplicated; Z79.899 Other long term (current) drug therapy
CPT/HCPCS: 36415; 74019; 80053; 80307; 81001; 81025; 82274; 83605; 83690; 83735; 84439; 84443; 84480; 85025; 87045; 87269; 87272; 87427; 87493; 87636; 89055; 96361; 96367; 96374; 96375; 96376; 99285; A9270; G0378; G0379; J0131; J1200; J1885; J2405; J2550; J2765; J7120